=== PATIENT | female | born 1975 | race Two or more races ===

== ENCOUNTER 2020-07-03 10:01 | Day surgery (SDC) | payer OTHER ==
[~2020-07-03 10:01] MED LIST: ACID REDUCER20 M1; MAX FE; TOPROL XL25 M1
[2020-07-03] MEDS ORDERED: ZITHROMAX500 MG PO (15:39)
[2020-07-03] MEDS ORDERED: IBUPROFEN400 MG PO (15:39)
== END 2020-07-03 20:45 | disposition home or self-care (01) ==
LOC: CIR.AMB 10:01
PROVIDERS: ATTEND Obstetrics & Gynecology
DX: N84.0 Polyp of corpus uteri (principal)

== ENCOUNTER 2021-09-03 06:17 | Inpatient (IN) | payer OTHER ==
[~2021-09-03] VITALS: Ht 162.6 cm; Wt 70.3 kg
[~2021-09-03 06:17] MED LIST changes: +IBUPROFEN400 MG PO; +ZITHROMAX500 MG PO
[2021-09-03] MEDS ORDERED: AVIANE-28 TABL1 EACH (15:13)
[2021-09-03] MEDS ORDERED: OMEPRAZOLE20 MG (15:13)
[2021-09-03] MEDS ORDERED: FLONASE16 GM (15:14)
[2021-09-03] MEDS ORDERED: HYFIBER WI12 GM/302 (15:14)
[2021-09-05] MEDS ORDERED: ACETAMINOPHEN-1 EAC2 PO (11:44)
[2021-09-05] MEDS ORDERED: HYFIBER WI12 GM/302 PO (11:45)
== END 2021-09-05 12:43 | disposition home or self-care (01) | DRG 742 ==
LOC: CIR.AMB 06:17 → OB/GYN 13:18 → O/R 13:18 → OB/GYN 13:57
PROVIDERS: ADMIT Obstetrics & Gynecology; ATTEND Obstetrics & Gynecology
PROC: 0UT57ZZ Resection of Right Fallopian Tube, Via Natural or Artificial Opening (ICD-10-PCS; 2021-09-03)
PROC: 0USG7ZZ Reposition Vagina, Via Natural or Artificial Opening (ICD-10-PCS; 2021-09-03)
PROC: 0UT97ZZ Resection of Uterus, Via Natural or Artificial Opening (ICD-10-PCS; principal; 2021-09-03 07:00)
DX: N80.0 Endometriosis of uterus (principal); K35.890 Other acute appendicitis without perforation or gangrene; D62 Acute posthemorrhagic anemia; N99.62 Intraoperative hemorrhage and hematoma of a genitourinary system organ or structure complicating other procedure; K36 Other appendicitis; Z20.822 Contact with and (suspected) exposure to COVID-19; D50.8 Other iron deficiency anemias